=== PATIENT | male | born 1950 | race Caucasian/White ===

== ENCOUNTER 2020-02-01 10:53 | Outpatient (CLI) | payer MEDICARE, OTHER ==
[2020-02-01] MEDS ORDERED: CALC625T13 PO (11:54)
[2020-02-01] MEDS ORDERED: DIPH50CA62 PO (11:54)
[2020-02-01] MEDS ORDERED: CHOL10003 PO (11:54)
[2020-02-01] MEDS ORDERED: ROSU5TAB PO (11:54)
[2020-02-01] MEDS ORDERED: MULT-717 PO (11:54)
[2020-02-01] MEDS ORDERED: ESCI10TA10 PO (11:54)
[2020-02-01] MEDS ORDERED: ALLO300T PO (11:54)
== END 2020-02-01 23:59 | disposition home or self-care (01) ==
LOC: LAB 10:53
PROVIDERS: ATTEND Urology
DX: Z02.9 Encounter for administrative examinations, unspecified (principal)

== ENCOUNTER → 2020-02-01 | Outpatient (CLI) | payer BC, MEDICARE, OTHER ==
[~2020-02-01] MED LIST: ALLO300T PO; CALC625T13 PO; CHOL10003 PO; DIPH50CA62 PO; ESCI10TA10 PO; MULT-717 PO; ROSU5TAB PO
[2020-02-01 12:12] LABS: MICROSCOPIC AUTO
[2020-02-01 12:20] LABS: ANION GAP 3 mmol/L (5-15); BASOPHILS % (AUTO) 1 % (0-1); CALCIUM 9.3 mg/dL (8.5-10.1); CHLORIDE 107 mmol/L (98-107); CREATININE 1.08 mg/dL (0.7-1.3); EOSINOPHILS % (AUTO) 5 % (1-7); LYMPHOCYTES % (AUTO) 35 % (22-44); MEAN CORPUSCULAR HEMOGLOBIN 32.4 pg (27.5-34.5); MONOCYTES % (AUTO) 10 % (2-9); NEUTROPHILS % (AUTO) 50 % (42-75); PLATELET COUNT 222 x10^3/uL (130-400); RED BLOOD COUNT 4.64 x10^6/uL (4.38-5.82); RED CELL DISTRIBUTION WIDTH 13.4 % (9.4-14.8)
[2020-02-01 12:23] LABS: INTERNATIONAL NORMALIZED RATIO 1.01 (0.93-1.1); PROTHROMBIN TIME 10.7 Seconds (9.6-11.5)
[2020-02-01 12:27] LABS: MD NO
== END | disposition home or self-care (01) ==
LOC: STAR 10:47
PROVIDERS: ATTEND Urology
DX: Z01.812 Encounter for preprocedural laboratory examination (principal); Z20.828 Contact with and (suspected) exposure to other viral communicable diseases; N20.0 Calculus of kidney; R94.31 Abnormal electrocardiogram [ECG] [EKG]
CPT/HCPCS: 80048; 81001; 85025; 85610; 87086; 87635; 93005

== ENCOUNTER 2020-02-07 07:17 | Day surgery (SDC) | payer MEDICARE, OTHER ==
[~2020-02-07] VITALS: Ht 182.9 cm; Wt 101.3 kg
[2020-02-07 08:06] VITALS: BP 121/80
[2020-02-07] MEDS ORDERED: FENTANYL PF 250 MCG/5ML ONE (08:28)
[2020-02-07] MEDS ORDERED: LACTATED RINGERS 1,000 ML IV SCH (08:30)
[2020-02-07] MEDS ORDERED: CHLORHEXIDINE 15 ML UDC MM ONE (08:30)
[2020-02-07] MEDS ORDERED: DEXAMETHASONE 4 MG/ML, 1ML ONE (09:00)
[2020-02-07] MEDS ORDERED: CEFAZOLIN 1,000 MG ONE (09:00)
[2020-02-07] MEDS ORDERED: ONDANSETRON 2MG/ML, 2ML ONE (09:00)
[2020-02-07] MEDS ORDERED: PROPOFOL 50 ML ONE (09:17)
[2020-02-07] MEDS ORDERED: OXYcodone 5 MG/5 ML ORAL.SOL UDC PO PRN (10:00)
[2020-02-07] MEDS ORDERED: ONDANSETRON 2MG/ML, 2ML IVPush PRN (10:00)
[2020-02-07] MEDS ORDERED: LORazepam 2 MG/ML, 1ML IVPush PRN (10:00)
[2020-02-07] MEDS ORDERED: HYDROmorphone 1 MG/ML, 1ML INJ IVPush PRN (10:00)
[2020-02-07] MEDS ORDERED: EPHEDRINE 50 MG/ML, 1ML IVPush PRN (10:00)
[2020-02-07] MEDS ORDERED: FENTANYL PF 100 MCG/2ML IV PRN (10:00)
[2020-02-07] MEDS ORDERED: hydrALAzine 20 MG/ML, 1ML IV PRN (10:00)
[2020-02-07] MEDS ORDERED: METHOCARBAMOL 1,000 MG in DEXTROSE 5% 100 ML IV PRN (10:00)
[2020-02-07] MEDS ORDERED: LABETALOL 5MG/ML, 20ML IV PRN (10:00)
[2020-02-07] MEDS ORDERED: PROMETHAZINE 25 MG/ML, 1ML IVPush PRN (10:00)
[2020-02-07] MEDS ORDERED: KETOROLAC 30 MG/1 ML IV PRN (10:00)
[2020-02-07] MEDS ORDERED: ACETAMINOPHEN 325 MG TABLET PO PRN (10:00)
[2020-02-07] MEDS ORDERED: PHENAZOPYRIDINE 200 MG TABLET PO ONE (11:00)
== END 2020-02-07 11:55 | disposition home or self-care (01) ==
LOC: OR 07:17 → OUT 11:55
PROVIDERS: ATTEND Urology
DX: N20.0 Calculus of kidney (principal); N13.5 Crossing vessel and stricture of ureter without hydronephrosis; N40.0 Benign prostatic hyperplasia without lower urinary tract symptoms; M10.9 Gout, unspecified; Z79.899 Other long term (current) drug therapy; Z87.442 Personal history of urinary calculi; Z87.891 Personal history of nicotine dependence; Z98.890 Other specified postprocedural states
CPT/HCPCS: 52332; 74018; C1726; C1758; C1769; C2617; J0690; J1100; J1885; J2405; J2704; J3010; J7120; 76000